=== PATIENT | female | born 1955 | race American Indian/Alaskan Native ===

== ENCOUNTER 2017-03-05 09:45 | Outpatient (CLI) | payer BC ==
--- NOTE | 2017-03-05 11:23 | Ultrasound Report ---
ULTRASOUND PELVIC COMPLETE ULTRASOUND TRANSVAGINAL HISTORY: Uterine fibroids. TECHNIQUE: Transabdominal and transvaginal ultrasound with color doppler interrogation. The uterus is anteverted and measures 7 x 3 x 5 cm. No uterine fibroids are detected on ultrasound. The endometrial stripe is complex and thickened measuring up to 1.6 cm near the uterine fundus. This is abnormal in a postmenopausal patient. The ovaries are not visualized. No adnexal cyst or mass. No pelvic fluid collection. IMPRESSION: Thickened and complex endometrium. This is abnormal in a postmenopausal patient. Consider endometrial biopsy. No uterine fibroids are visualized on ultrasound. The ovaries are obscured
== END 2017-03-05 09:46 | disposition home or self-care (01) ==
LOC: MAMMO 09:45 → US 09:46
PROVIDERS: ATTEND Family Medicine
DX: N85.4 Malposition of uterus (principal); Z87.42 Personal history of other diseases of the female genital tract
CPT/HCPCS: 76830; 76856

== ENCOUNTER 2017-03-24 08:53 | Outpatient (CLI) | payer BC ==
--- NOTE | 2017-03-24 12:45 | Mammography Report ---
BILATERAL DIGITAL SCREENING MAMMOGRAM with CAD: 03/24/17 08:53:00 CLINICAL: Routine screening. COMPARISON:03/21/16 FINDINGS: The breasts are almost entirely fatty.Scattered bilateral benign calcifications. No mass, architectural distortion or suspicious calcifications. IMPRESSION: No mammographic evidence of malignancy. BI-RADS CATEGORY: 2 -- Benign RECOMMENDATION: Routine mammographic screening in one year. COMMENT: Patient follow-up letters are generated by our [employer] application.
== END 2017-03-24 08:54 | disposition home or self-care (01) ==
LOC: MAMMO 08:53
PROVIDERS: ATTEND Family Medicine
DX: Z12.31 Encounter for screening mammogram for malignant neoplasm of breast (principal)
CPT/HCPCS: 77067; G0202

== ENCOUNTER 2017-10-22 08:42 | Outpatient (CLI) | payer BC ==
--- NOTE | 2017-10-23 07:55 | Vascular Lab Report ---
LOWER EXTREMITY ARTERIAL DUPLEX: REASON FOR EXAM: Peripheral arterial disease. COMMENTS ON THE RIGHT: Triphasic waveforms are seen proximally. Biphasic waveforms are seen distally. No significant velocity gradients are identified. No focal significant plaque is identified. Findings are consistent with normal perfusion. Findings are consistent with the ability to heal distal wounds. COMMENTS ON THE LEFT: Triphasic waveforms are seen proximally. Biphasic waveforms are seen distally. No significant velocity gradients are identified. No focal significant plaque is identified. Findings are consistent with normal perfusion. Findings are consistent with the ability to heal distal wounds. IMPRESSION: RIGHT: Essentially normal arterial flow. LEFT:Essentially normal arterial flow.
--- NOTE | 2017-10-23 07:59 | Vascular Lab Report ---
LOWER EXTREMITY VENOUS DUPLEX: REASON FOR EXAM: Edema of the lower extremities. COMMENTS ON THE RIGHT: All veins visualized are freely compressible without evidence of internal echogenicity. Flow is spontaneous and phasic throughout. COMMENTS ON THE LEFT: All veins visualized are freely compressible without evidence of internal echogenicity. Flow is spontaneous and phasic throughout. IMPRESSION: No evidence of acute or chronic deep venous thrombosis in either lower extremity.
== END 2017-10-22 08:43 | disposition home or self-care (01) ==
LOC: VAS 08:42
PROVIDERS: ATTEND Family Medicine
DX: R60.1 Generalized edema (principal); M79.89 Other specified soft tissue disorders
CPT/HCPCS: 93925; 93970

== ENCOUNTER 2018-04-21 13:26 | Outpatient (CLI) | payer BC ==
--- NOTE | 2018-04-21 15:48 | Mammography Report ---
BILATERAL DIGITAL SCREENING MAMMOGRAM with CAD: 04/21/18 13:26:00 CLINICAL: Routine screening. COMPARISON:03/24/17 FINDINGS: There are bilateral scattered areas of fibroglandular density. No mass, architectural distortion or suspicious calcifications. IMPRESSION: No mammographic evidence of malignancy. BI-RADS CATEGORY: 2 -- Benign RECOMMENDATION: Routine mammographic screening in one year. COMMENT: Patient follow-up letters are generated by our [employer] application.
== END 2018-04-21 13:27 | disposition home or self-care (01) ==
LOC: MAMMO 13:26
PROVIDERS: ATTEND Family Medicine
DX: Z12.31 Encounter for screening mammogram for malignant neoplasm of breast (principal)
CPT/HCPCS: 77067

== ENCOUNTER 2019-04-27 08:08 | Outpatient (CLI) | payer BC, MEDICARE ==
--- NOTE | 2019-04-27 09:39 | Mammography Report ---
BILATERAL DIGITAL SCREENING MAMMOGRAM with CAD : 04/27/19 08:08:00 CLINICAL: Routine screening. COMPARISON:04/21/18 FINDINGS: The breasts are heterogeneously dense, which may obscure small masses. No mass, architectural distortion or suspicious calcifications. IMPRESSION: No mammographic evidence of malignancy. BI-RADS CATEGORY: 2 -- Benign RECOMMENDATION: Routine mammographic screening in one year. COMMENT: Patient follow-up letters are generated by our [employer] application.
== END 2019-04-27 08:09 | disposition home or self-care (01) ==
LOC: MAMMO 08:08
PROVIDERS: ATTEND Family Medicine
DX: Z12.31 Encounter for screening mammogram for malignant neoplasm of breast (principal); E66.9 Obesity, unspecified
CPT/HCPCS: 77067

== ENCOUNTER 2019-08-19 05:47 | Day surgery (SDC) | payer MEDICARE ==
[2019-08-19] MEDS ORDERED: SODIUM CHLORIDE 0.9% 1000 ML 1,000 ML IV SCH (07:00)
[2019-08-19] MEDS ORDERED: WATER FOR IRRIG STERILE 250 ML BOTTLE IR ONE (07:37)
[2019-08-19] MEDS ORDERED: WATER FOR IRRIG STERILE 1,000 ML BOTTLE ONE (07:37)
[2019-08-19] MEDS ORDERED: PROPOFOL 200 MG/20 ML VIAL IV ONE ×3 (07:59→08:38)
[2019-08-19] MEDS ORDERED: LIDOCAINE MPF (2%) 20 MG/1 ML VIAL 5 ML ONE (08:00)
--- NOTE | 2019-08-19 08:05 | Anesthesia Consultation ---
Anesthesia Consult and Med Hx Date of service: 08/19/19 - Airway Anesthetic Teeth Evaluation: Good ROM Head & Neck: Adequate Mental/Hyoid Distance: Adequate Mallampati Class: Class II Intubation Access Assessment: Probably Good - Pre-Operative Health Status ASA Pre-Surgery Classification: ASA3 Proposed Anesthetic Plan: MAC - Pulmonary Hx Smoking: No Hx Asthma: No Hx Respiratory Symptoms: No SOB: No COPD: No Home Oxygen Therapy: No Hx Pneumonia: No Hx Sleep Apnea: No - Cardiovascular System Hx Hypertension: No Hx Coronary Artery Disease: No Hx Heart Attack/AMI: No Hx Angina: No Hx Percutaneous Transluminal Coronary Angioplasty (PTCA): No Hx Cardia Arrhythmia: No Hx Pacemaker: No Hx Internal Defibrillator: No Hx Valvular Heart Disease: No Hx Heart Murmur: No Hx Peripheral Vascular Disease: No - Central Nervous System Hx Neuromuscular Disorder: No Hx Seizures: No CVA: No Hx Back Pain: No Hx Psychiatric Problems: No - Gastrointestinal Hx Gastroesophageal Reflux Disease: No - Endocrine Hx Renal Disease: No Hx End Stage Renal Disease: No Hx Cirrhosis: No Hx Liver Disease: No Hx Insulin Dependent Diabetes: No Hx Non-Insulin Dependent Diabetes: No Hx Thyroid Disease: No Hx Hypothyroidism: No Hx Hyperthyroidism: No - Hematic Hx Anemia: No (takes prn ibuprofen last took 1 week ago) Hx Sickle Cell Disease: No - Other Systems Hx Alcohol Use: No Hx Substance Use: No Hx Cancer: No Hx Obesity: Yes
--- NOTE | 2019-08-19 08:06 | Anesthesia Day of Surgery ---
Anesthesia Day of Surgery - Day of Surgery Patient Examined: Yes Patient H&P Reviewed: Yes Patient is NPO: Yes Beta Blockers: No
--- NOTE | 2019-08-19 08:53 | Short Stay Summary ---
Short Stay Documentation - Allergies and Medications Current Medications: Allergies No Known Allergies Allergy (Verified 01/27/15 11:14) Home Medications Medication Instructions Recorded Confirmed Last Taken Type Vitamin D3 1,000 UNIT TAB 1,000 units PO DAILY 08/18/19 08/18/19 08/18/19 History Active Medications Sodium Chloride (Nacl 0.9% 1000 Ml) 1,000 mls @ 50 mls/hr IV DIRECT PETE Last Admin: 08/19/19 07:43 Dose: 50 mls/hr Documented by: - Brief post op/procedure progress note Date of procedure: 08/19/19 Pre-op diagnosis: Colon cancer screening Post-op diagnosis: same (1. Colon polyps 2. Internal hemorrhoids) Procedure: Colonoscopy with cold biopsy polypectomy Anesthesia: MAC Findings: as above Surgeon: FELTON PERALTA Estimated blood loss: none Pathology: list (1. descending colon polyp 2. sigmoid colon polyp) Specimen disposition: to lab Condition: stable - Disposition Condition at discharge: Stable Disposition: DC-[id number] TO HOME OR SELFCARE Short Stay Discharge Plan Activity: no restrictions Weight Bearing Status: Full Weight Bearing Diet: regular, low salt Follow up with: THIERRY RICE JR, MD [Primary Care Provider] - 7 Days
[2019-08-19 09:34] VITALS: BP 157/64
--- NOTE | 2019-08-19 13:40 | Post Anesthesia Evaluation ---
- Post Anesthesia Evaluation Patient Participated: Yes Airway Patent: Yes Stable Respiratory Function: Yes Nausea/Vomiting: No Temp > 96.8F: Yes Pain Manageable: Yes Adequeate Hydration: Yes Anesthesia Complications: No Block Receding Appropriately: Not Applicable Patient on Ventilator: No
== END 2019-08-19 05:48 | disposition home or self-care (01) ==
LOC: GIO 05:47
PROVIDERS: ATTEND Internal Medicine Gastroenterology
DX: Z12.11 Encounter for screening for malignant neoplasm of colon (principal); K63.5 Polyp of colon; K64.8 Other hemorrhoids; E66.9 Obesity, unspecified; Z79.899 Other long term (current) drug therapy; Z68.43 Body mass index [BMI] 50.0-59.9, adult; Z98.51 Tubal ligation status
CPT/HCPCS: 45380; 88305; J2704; J7030

== ENCOUNTER 2019-09-21 09:34 | Outpatient (CLI) | payer MEDICARE ==
--- NOTE | 2019-09-21 12:05 | XRay Report ---
LUMBOSACRAL SPINE, 5 VIEWS INDICATION: BACK PAIN. COMPARISON: None. IMPRESSION: Normal alignment and bone mineralization. Moderate to severe discogenic disc disease an d facet arthropathy are identified at all levels. L3-4 appears to be the most affected level. No ignacia dence for compression deformity, subluxation or bone lesion. The oblique images are somewhat limited and poorly demonstrate the neural foramen. Multilevel neural foraminal narrowing could be present. Co nsider further evaluation with MRI if radicular symptoms are present. Signer Name: Grupo Hicks Jr, MD Signed: 09/21/2019 12:00 PM Workstation Name: [id number]
== END 2019-09-21 09:35 | disposition home or self-care (01) ==
LOC: XRAY 09:34
PROVIDERS: ATTEND Family Medicine
DX: M54.5 Low back pain (principal); Z98.51 Tubal ligation status
CPT/HCPCS: 72110